=== PATIENT | male | born 1950 | race Caucasian/White ===

== ENCOUNTER 2024-10-18 18:14 | Emergency (ER) | payer MEDICARE, OTHER, SELFPAY ==
[2024-10-18 18:16] VITALS: BP 113/67; PULSE 95; RESP 18; TEMP 37; O2SAT 97; BMI 30.1
--- NOTE | 2024-10-18 18:16 | ED_ITS ---
<Statement entered by Anay Garcia DO - 10/18/24 22:00> I was consulted by the MARCOS, and we discussed the complexity of the problems being addressed. I approved the treatment and management plan for this patient's care in the emergency department, thus performing a substantive portion of the medical decision making. Anay Garcia DO Discharge Plan Disposition Patient Disposition: Home, Self-Care Referrals Follow up/Referrals: Suma Selby APRN [Primary Care Provider, Medical] - See instructions Activity Restrictions/Add. Instructions Additional Instructions/Restrictions: Today you were evaluated in the emergency department after your fall. All of your CT scans are unremarkable for anything acute. Please continue to take acetaminophen every 6-8 hours for pain. Return to the ED for any worsening of your condition. Clinical Impressions Clinical Impression: Fall Instructions Patient Instructions: How to Prevent Falls Print Language Print Language: Indonesian Discharge ED Provider: Anay Garcia General Adult HPI General Chief complaint: Fall Stated complaint: Fall Time Seen by Provider: 10/18/24 18:16 History of Present Illness HPI narrative: patient is a 73-year-old male PMHx diabetes, hypertension, high cholesterol, history of A-fib, currently on anticoagulants who presents to the ED after a fall prior to arrival. Patient states he was attempting to get out of the shower when his foot was wet stepping onto tile, states his foot slowly started to slide out from under him, he fell to his knees and then subsequently fell back on his left side. Related Data Allergies Allergy/AdvReac Type Severity Reaction Status Date / Time No Known Allergies Allergy Verified 10/18/24 18:23 [facility] Disclaimer: The information contained in this section may have been updated after the patient was seen, as this information can be updated by other users. Social History Smoking Status: Never smoker alcohol intake: never current occupational status: unemployed Travel in the last 8 weeks?: None ROS Obtained: Yes Systems reviewed as appropriate & no additional complaints except as documented Physical Exam General General appearance: alert and in no apparent distress Head Head exam: atraumatic and normocephalic Eye Eye exam: Present normal appearance and PERRL ENT ENT exam: Present normal exam Neck Neck exam: Present normal inspection Chest Chest inspection: Present normal inspection and symmetric chest wall rise; Absent tenderness Respiratory Respiratory exam: Present normal lung sounds bilaterally Cardiovascular Cardiovascular exam: Present regular rate Abdominal Exam Abdominal exam: Present soft and normal bowel sounds; Absent tenderness Extremities Exam Extremities exam: Present normal inspection and full ROM Back Exam Back exam: Present normal inspection and full ROM Neurological Exam Neurological exam: Present alert, oriented X3, normal gait and motor sensory deficit Psychiatric Psychiatric exam: Present normal affect and normal mood Skin Skin exam: Present warm and dry Medical Decision Making Medical Records Screening: Per USPSTF and CDC recommendations, given the prevalence of disease in our region, it is our hospital?s policy to screen for HIV and viral Hepatitis for all patients aged 18 and over and those with ongoing risk factors. Brijesh Inquiry Pt receiving controlled substance: No Brijesh was queried for this patient: No Vital Signs: 10/18/24 18:16 10/18/24 19:28 10/18/24 19:30 Temperature 98.6 F Temperature Source Oral Pulse Rate 82 82 Pulse Rate [Radial] 95 H Respiratory Rate 18 Blood Pressure 120/79 122/78 Blood Pressure [Right Arm] 113/67 Blood Pressure Mean [Right Arm] 82 Blood Pressure Source [Right Arm] Automatic Cuff Blood Pressure Position [Right Arm] Sitting 02 Sat by Pulse Oximetry 97 96 95 Oxygen Delivery Method Room Air 10/18/24 20:00 Temperature Temperature Source Pulse Rate 68 Pulse Rate [Radial] Respiratory Rate Blood Pressure 135/78 Blood Pressure [Right Arm] Blood Pressure Mean [Right Arm] Blood Pressure Source [Right Arm] Blood Pressure Position [Right Arm] 02 Sat by Pulse Oximetry 96 Oxygen Delivery Method Orders (Tests/Meds): ED MEDICATIONS Discontinued Medications Generic Name Dose Route Start Last Admin Trade Name Freq PRN Reason Stop Dose Admin Acetaminophen 1,000 mg 10/18/24 18:27 10/18/24 18:58 Acetaminophen 500mg Tab PO 10/18/24 18:28 1,000 mg ONCE ONE Administration ORDERS Category Date Time Status CT cervical spine wo con Stat Cat Scan 10/18/24 18:[address] head/brain wo con Stat Cat Scan 10/18/24 18:[address] lumbar spine wo con Stat Cat Scan 10/18/24 18:[address] thoracic spine wo con Stat Cat Scan 10/18/24 18:22 Completed CXR --portable [XR chest portable] Stat Exams 10/18/24 18:22 Completed Medical Decision Narrative: In summary, patient is a 73-year-old male PMHx diabetes, hypertension, high cholesterol, history of A-fib, currently on anticoagulants who presents to the ED after a fall prior to arrival. Patient states he was attempting to get out of the shower when his foot was wet stepping onto tile, states his foot slowly started to slide out from under him, he fell to his knees and then subsequently fell back on his left side. Patient does not think that he hit his head but is unsure, states he did not lose consciousness. At time of arrival, he states he is in no pain other than a mild headache which he generally has at baseline. He arrives in a c-collar. He denies fever, chills, body aches, headache, visual disturbances, neck pain, back pain, abdominal pain, nausea, vomiting. I discussed with patient due to age and mechanism of injury we will proceed with CT scans. He is agreeable to this. We will symptomatically manage his mild headache with acetaminophen. Final read of the head CT unremarkable for any acute intracranial abnormality. Final read of the C-spine unremarkable for no acute fracture or malalignment. T-spine no evidence of acute osseous abnormality. L-spine unremarkable for any evidence of acute osseous abnormality. Chest x-ray unremarkable for any acute findings. Upon reassessment, patient states that his condition has improved. He is able to tolerate PO and is ambulatory in the ED without difficulty. Given this, I feel the patient is safe to be discharged home at this time. We discussed he will need to follow-up with his PCP. Can continue to take acetaminophen every 6-8 hours for pain. We discussed return precautions to the ED and patient verbalized understanding. Critical Care Critical Care Time Critical Care Time: No
--- NOTE | 2024-10-18 18:22 | CT_ITS ---
PROCEDURE INFORMATION: Exam: CT Head Without Contrast Exam date and time: 10/18/2024 6:36 PM Age: 73 years old Clinical indication: Injury or trauma; Fall; Other: Pain TECHNIQUE: Imaging protocol: Computed tomography of the head without contrast. Radiation optimization: All CT scans at this facility use at least one of these dose optimization techniques: automated exposure control; mA and/or kV adjustment per patient size (includes targeted exams where dose is matched to clinical indication); or iterative reconstruction. COMPARISON: No relevant prior studies available. FINDINGS: Brain: Periventricular and subcortical white matter areas of hypoattenuation, likely chronic small vessel ischemic change, demyelination, or gliosis. No intracranial mass, acute hemorrhage, or acute infarction. Cerebral ventricles: No ventriculomegaly. Paranasal sinuses: Minimal ethmoid sinus mucosal thickening. Mastoid air cells: Normal as visualized. Bones: Unremarkable. No acute fracture. Soft tissues: Unremarkable. Vasculature: Atherosclerotic vascular disease. IMPRESSION: No acute intracranial abnormality.
--- NOTE | 2024-10-18 18:22 | CT_ITS ---
PROCEDURE INFORMATION: Exam: CT Thoracic Spine Without Contrast Exam date and time: 10/18/2024 6:40 PM Age: 73 years old Clinical indication: Injury or trauma; Fall; Other: Pain TECHNIQUE: Imaging protocol: Computed tomography of the thoracic spine without contrast. Radiation optimization: All CT scans at this facility use at least one of these dose optimization techniques: automated exposure control; mA and/or kV adjustment per patient size (includes targeted exams where dose is matched to clinical indication); or iterative reconstruction. COMPARISON: CT CERVICAL SPINE WO CON 10/18/2024 6:38 PM FINDINGS: Bones/joints: Bones are poorly mineralized with multi-level broad-based vertebral body endplate concavities compatible with chronic osteoporotic changes. No evidence of acute fracture or malalignment. Soft tissues: Unremarkable. IMPRESSION: No evidence of acute osseous abnormality in the thoracic spine.
--- NOTE | 2024-10-18 18:22 | XR_ITS ---
PROCEDURE INFORMATION: Exam: XR Chest Exam date and time: 10/18/2024 6:45 PM Age: 73 years old Clinical indication: Injury or trauma; Fall; Other: Pain TECHNIQUE: Imaging protocol: Radiologic exam of the chest. Views: 1 view. COMPARISON: CT THORACIC SPINE WO CON 10/18/2024 6:40 PM FINDINGS: Lungs: Atelectasis and volume loss in the left lung base. No evidence of airspace infiltrate or pulmonary edema. Pleural spaces: No visible pleural effusion. No pneumothorax. Heart/Mediastinum: Mildly enlarged cardiac silhouette, nonspecific. Bones/joints: No evidence of acute osseous abnormality. Multiple chronic rib fracture deformities noted. IMPRESSION: No acute findings.
--- NOTE | 2024-10-18 18:22 | CT_ITS ---
PROCEDURE INFORMATION: Exam: CT Lumbar Spine Without Contrast Exam date and time: 10/18/2024 6:43 PM Age: 73 years old Clinical indication: Injury or trauma; Fall; Other: Pain TECHNIQUE: Imaging protocol: Computed tomography of the lumbar spine without contrast. Radiation optimization: All CT scans at this facility use at least one of these dose optimization techniques: automated exposure control; mA and/or kV adjustment per patient size (includes targeted exams where dose is matched to clinical indication); or iterative reconstruction. COMPARISON: CT THORACIC SPINE WO CON 10/18/2024 6:40 PM FINDINGS: Bones/joints: There are 5 [id number] vertebral bodies in the lumbar spine. Chronic compression fracture deformities in L1 and L2 status post cement kyphoplasty. Chronic fracture deformity is also noted in multiple transverse processes. No evidence of acute fracture. Grade 1 anterolisthesis at L4-L5. No pars defects. Spinal alignment is otherwise unremarkable. Soft tissues: Unremarkable. IMPRESSION: No evidence of acute osseous abnormality in the lumbar spine.
--- NOTE | 2024-10-18 18:22 | CT_ITS ---
PROCEDURE INFORMATION: Exam: CT Cervical Spine Without Contrast Exam date and time: 10/18/2024 6:38 PM Age: 73 years old Clinical indication: Injury or trauma; Fall; Other: Pain; Additional info: Fall, hit head TECHNIQUE: Imaging protocol: Computed tomography of the cervical spine without contrast. Radiation optimization: All CT scans at this facility use at least one of these dose optimization techniques: automated exposure control; mA and/or kV adjustment per patient size (includes targeted exams where dose is matched to clinical indication); or iterative reconstruction. COMPARISON: CT HEAD/BRAIN WO CON 10/18/2024 6:36 PM FINDINGS: Tubes, catheters and devices: Partially visualized left subclavian transvenous pacemaker leads. Bones: Degenerative changes of the atlantoaxial articulation. Multilevel degenerative disc disease, worst at the C3-C4 level, where there is moderate disc space narrowing, endplate sclerosis/irregularity, and posterior disc osteophyte complex, causing ventral thecal sac indentation. Moderate multilevel bilateral facet and uncovertebral arthropathy. No acute fracture or malalignment. Bilateral C3-C4, left C4-C5, and left C5-C6 neural foraminal narrowing. Trachea: Evidence of tracheomalacia. Lungs: Lung apices are normal. Vasculature: Atherosclerotic vascular disease. Soft tissues: Normal. IMPRESSION: No acute fracture or malalignment.
--- NOTE | 2024-10-18 18:48 | PC.NURSE ---
PT RETURNED FROM CT
[2024-10-18] MEDS: ACETAMINOPHEN 500MG TAB 1000 MG PO (18:58)
[2024-10-18 19:28] VITALS: BP 120/79; PULSE 82; O2SAT 96
[2024-10-18 19:30] VITALS: BP 122/78; PULSE 82; O2SAT 95
[2024-10-18 20:00] VITALS: BP 135/78; PULSE 68; O2SAT 96
--- NOTE | 2024-10-18 20:21 | PC.NURSE ---
c-collar removed by advertising copy writer, CT scans were negative and got approval from [facility] SUGAR.
[2024-10-18 20:30] VITALS: BP 120/77; PULSE 75; O2SAT 96
[2024-10-18 21:05] VITALS: BP 136/86; PULSE 80; RESP 18; TEMP 36.8; O2SAT 97
== END 2024-10-18 21:08 | disposition home or self-care (01) ==
PROVIDERS: Emergency Provider Emergency Medicine; PCP Nurse Practitioner Family
DX: R51.9 Headache, unspecified (principal); W18.2XXA Fall in (into) shower or empty bathtub, initial encounter
CPT/HCPCS: 70450; 71045; 72125; 72128; 72131; 99285